=== PATIENT | female | born 1955 | race Asian ===

== ENCOUNTER 2021-10-04 04:36 | Day surgery (SDC) | payer BC ==
[2021-09-28 15:26] VITALS: BMI 22.1
[2021-10-04] MEDS ORDERED: KETAMINE HCL 200 MG/20 ML VIAL ONE (07:50)
[2021-10-04 08:33] VITALS: TEMP 98
[2021-10-04 09:29] VITALS: BP 109/67; PULSE 60
== END 2021-10-04 09:30 | disposition home or self-care (01) ==
LOC: JASU-ENDO 04:36
PROVIDERS: ATTEND Internal Medicine Gastroenterology
PROC: 0DJD8ZZ Inspection of Lower Intestinal Tract, Via Natural or Artificial Opening Endoscopic (ICD-10-PCS; principal; 2021-10-04 08:00)
DX: Z12.11 Encounter for screening for malignant neoplasm of colon (principal); K64.8 Other hemorrhoids